=== PATIENT | male | born 1960 | race Caucasian/White ===

== ENCOUNTER 2018-02-11 10:27 | Emergency (ER) | payer BC, OTHER ==
[2018-02-11 10:33] VITALS: BP 154/94; RESP 20; TEMP 98.1
[2018-02-11] MEDS ORDERED: IPRATROPIUM-ALBUTEROL 3 ML NEB INHALATION STA (10:50)
--- NOTE | 2018-02-11 10:52 | ED ---
General Adult HPI - General Chief complaint: Shortness of Breath Stated complaint: PANCHO Time Seen by Provider: 02/11/18 10:29 Source: patient, RN notes reviewed Mode of arrival: ambulatory Limitations: no limitations - History of Present Illness Initial comments: Patient is a pleasant 57-year-old male presenting to the emergency Department with cough and difficulty breathing. Patient is a smoker. Symptoms have been present for quite a while however worse the past few days. Cough has had some clear sputum. Patient also has sinus congestion and clear drainage. Patient has been taking Claritin for that. Patient feels he may have had some fevers. Patient did have similar symptoms last year that resolved with antibiotics. No leg pain or leg swelling. - Related Data Previous Rx's Medication Instructions Recorded Albuterol Inhaler [Ventolin Hfa 2 puff INHALATION Q4HR PRN #1 02/11/18 Inhaler] inhaler Azithromycin [Zithromax Z-pack] 250 mg PO DIRECTED #6 tab 02/11/18 predniSONE 20 mg PO BID #10 tab 02/11/18 Allergies Allergy/AdvReac Type Severity Reaction Status Date / Time No Known Allergies Allergy Verified 02/11/18 10:33 Review of Systems ROS Statement: Those systems with pertinent positive or pertinent negative responses have been documented in the HPI. ROS Other: All systems not noted in ROS Statement are negative. Constitutional: Reports: fever, chills Eyes: Denies: eye pain ENT: Reports: congestion. Denies: ear pain Respiratory: Reports: cough, dyspnea Cardiovascular: Denies: chest pain Endocrine: Denies: fatigue Gastrointestinal: Denies: abdominal pain Genitourinary: Denies: dysuria Musculoskeletal: Denies: back pain Skin: Denies: rash Neurological: Denies: weakness Past Medical History Past Medical History: Coronary Artery Disease (CAD), Hypertension History of Any Multi-Drug Resistant Organisms: None Reported Past Surgical History: Orthopedic Surgery Past Psychological History: No Psychological Hx Reported Smoking Status: Current every day smoker Past Alcohol Use History: Daily Past Drug Use History: Marijuana General Exam Limitations: no limitations General appearance: alert, in no apparent distress Head exam: Present: atraumatic Eye exam: Present: normal appearance, PERRL ENT exam: Present: normal oropharynx Neck exam: Present: normal inspection Respiratory exam: Present: wheezes, decreased breath sounds Cardiovascular Exam: Present: regular rate, normal rhythm GI/Abdominal exam: Present: soft. Absent: tenderness Extremities exam: Present: normal inspection. Absent: pedal edema, calf tenderness Neurological exam: Present: alert Psychiatric exam: Present: normal affect, normal mood Skin exam: Present: normal color Course Vital Signs 02/11/18 02/11/18 02/11/18 10:28 10:55 11:03 Temperature 98.1 F Pulse Rate 106 H 104 H 104 H Respiratory 20 Rate Blood Pressure 154/94 O2 Sat by Pulse 97 Oximetry - Reevaluation(s) Reevaluation #1: 02/11/18 11:42 Patient counseled on smoking sensation greater than 3 minutes. Medical Decision Making - Medical Decision Making Patient reevaluated and improved following advise her treatment. Lungs are clear to auscultation. Patient updated on results and plan. Patient states he believes he was assigned Dr. Stone by his insurance however is not certain. - Radiology Data Radiology results: image reviewed (Chest x-ray shows no acute process) Disposition Clinical Impression: Acute bronchitis, Acute exacerbation of chronic obstructive airways disease Disposition: HOME SELF-CARE Condition: Stable Instructions: Acute Bronchitis (ED), COPD (Chronic Obstructive Pulmonary Disease) (ED), How to Stop Smoking (ED) Additional Instructions: Discontinue smoking. Please follow-up with primary care physician in the beginning of the week for follow-up. Return for difficulty breathing, fevers, worsening or changing symptoms or other concerns. Prescriptions: Albuterol Inhaler [Ventolin Hfa Inhaler] 2 puff INHALATION Q4HR PRN #1 inhaler PRN Reason: Dyspnea Azithromycin [Zithromax Z-pack] 250 mg PO DIRECTED #6 tab predniSONE 20 mg PO BID #10 tab Is patient prescribed a controlled substance at d/c from ED?: No Referrals: Galindo Duarte MD [STAFF PHYSICIAN] - 1-2 days Niyah Stone MD [STAFF PHYSICIAN] - 1-2 days Time of Disposition: 11:44
[2018-02-11 10:57] VITALS: PULSE 104
--- NOTE | 2018-02-11 11:26 | XR ---
EXAMINATION TYPE: XR chest 2V DATE OF EXAM: 02/11/2018 HISTORY: Cough. REFERENCE: NONE. FINDINGS: The lungs are clear. Pleural spaces are clear. The heart is not enlarged. IMPRESSION: NO ACUTE INTRATHORACIC ABNORMALITY.
== END 2018-02-11 11:58 | disposition home or self-care (01) ==
LOC: EC 10:27
DX: J44.1 Chronic obstructive pulmonary disease with (acute) exacerbation (principal); J44.0 Chronic obstructive pulmonary disease with (acute) lower respiratory infection; J20.9 Acute bronchitis, unspecified; F17.200 Nicotine dependence, unspecified, uncomplicated
CPT/HCPCS: 71046; 94640; 99285; 99406

== ENCOUNTER 2018-03-07 13:42 | Inpatient (IN) | payer BC ==
[2018-03-07] MEDS ORDERED: IPRATROPIUM-ALBUTEROL 3 ML NEB INHALATION STA (14:29)
[2018-03-07] MEDS ORDERED: methylPREDNISolone SOD SUCCI 125 MG/2 ML VIAL IV STA (14:29)
--- NOTE | 2018-03-07 14:33 | ED ---
SOB HPI - General Chief Complaint: Shortness of Breath Stated Complaint: PANCHO Time Seen by Provider: 03/07/18 14:02 Source: patient, RN notes reviewed Mode of arrival: ambulatory Limitations: no limitations - History of Present Illness Initial Comments: This is a 58-year-old male who presents with complaints of exertional dyspnea. He states he cannot walk more than 10 feet without getting winded. This is been progressing over last week or so. He was seen by his doctor last week and placed on antibiotics given a nebulizer for home he states is not helping. He denies any fevers chills sweats or chest pain. He is a smoker he states he try to quit and he almost is done smoking. He has no known diagnosis of COPD emphysema or asthma. No known heart disease no congestive heart failure. He denies any other problems at this time no other modifying factors MD Complaint: shortness of breath - Related Data Home Medications Medication Instructions Recorded Confirmed Cholecalciferol (Vitamin D3) 2,000 unit PO DAILY 03/07/18 03/07/18 [Vitamin D3] Ipratropium-Albuterol Nebulize 3 ml INHALATION RT-QID PRN 03/07/18 03/07/18 [Duoneb 0.5 mg-3 mg/3 ml Soln] Loratadine-Pseudoeph 10-240 mg 1 tab PO DAILY 03/07/18 03/07/18 [Claritin-D 24 Hr] amLODIPine [Norvasc] 5 mg PO DAILY 03/07/18 03/07/18 Allergies Allergy/AdvReac Type Severity Reaction Status Date / Time No Known Allergies Allergy Verified 03/07/18 14:19 Review of Systems ROS Statement: Those systems with pertinent positive or pertinent negative responses have been documented in the HPI. ROS Other: All systems not noted in ROS Statement are negative. Past Medical History Past Medical History: Coronary Artery Disease (CAD), COPD, Hypertension History of Any Multi-Drug Resistant Organisms: None Reported Past Surgical History: Orthopedic Surgery Past Psychological History: No Psychological Hx Reported Smoking Status: Current every day smoker Past Alcohol Use History: Daily Past Drug Use History: Marijuana General Exam - General Exam Comments Initial Comments: This is a well-developed well-nourished awake alert oriented 3 male Limitations: no limitations General appearance: alert, in no apparent distress, anxious Head exam: Present: atraumatic, normocephalic, normal inspection Eye exam: Present: normal appearance, PERRL, EOMI. Absent: scleral icterus, conjunctival injection, periorbital swelling ENT exam: Present: mucous membranes dry, other (Evidence of mild oral thrush) Neck exam: Present: normal inspection, full ROM, other (No stridor JVD or bruits ). Absent: tenderness, meningismus, lymphadenopathy Respiratory exam: Present: rhonchi (Right lower lobe rhonchi), decreased breath sounds Cardiovascular Exam: Present: regular rate, tachycardia GI/Abdominal exam: Present: soft, normal bowel sounds. Absent: distended, tenderness, guarding, rebound, rigid Extremities exam: Present: pedal edema Back exam: Present: normal inspection Neurological exam: Present: alert, oriented X3, CN II-XII intact Psychiatric exam: Present: normal affect, normal mood Skin exam: Present: warm, dry, intact, normal color. Absent: rash Course Vital Signs 03/07/18 03/07/18 03/07/18 13:47 14:53 15:02 Temperature 98.2 F Pulse Rate 121 H 120 H 120 H Respiratory 18 Rate Blood Pressure 169/95 O2 Sat by Pulse 97 Oximetry 03/07/18 16:03 Temperature Pulse Rate 114 H Respiratory 19 Rate Blood Pressure 156/97 O2 Sat by Pulse 98 Oximetry - Reevaluation(s) Reevaluation #1: 03/07/18 16:35 Patient does admit to using a lot of alcohol and smoking cigarettes. Medical Decision Making - Medical Decision Making Patient got minimal relief from his updraft treatment. CT showed no definite pulmonary embolism. Patient still short of breath still tachycardic. I did discuss case with Dr. Duarte patient be admitted with consultation by Dr. Tom lynn and medicine. Echocardiogram will be ordered. - Lab Data Result diagrams: 03/07/18 14:04 03/07/18 14:04 Lab Results 03/07/18 03/07/18 03/07/18 Range/Units 14:04 14:04 14:04 WBC 10.2 (3.8-10.6) k/uL RBC 3.74 L (4.30-5.90) m/uL Hgb 12.7 L (13.0-17.5) gm/dL Hct 38.7 L (39.0-53.0) % MCV 103.6 H (80.0-100.0) fL MCH 34.0 (25.0-35.0) pg MCHC 32.8 (31.0-37.0) g/dL RDW 13.9 (11.5-15.5) % Plt Count 251 (150-450) k/uL Neutrophils % 77 % Lymphocytes % 14 % Monocytes % 6 % Eosinophils % 2 % Basophils % 1 % Neutrophils # 7.9 H (1.3-7.7) k/uL Lymphocytes # 1.4 (1.0-4.8) k/uL Monocytes # 0.6 (0-1.0) k/uL Eosinophils # 0.2 (0-0.7) k/uL Basophils # 0.1 (0-0.2) k/uL Macrocytosis Slight PT 10.8 (9.0-12.0) sec INR 1.0 (<1.2) APTT 27.3 (22.0-30.0) sec D-Dimer 3.68 H (<0.60) mg/L FEU Sodium (137-145) mmol/L Potassium (3.5-5.1) mmol/L Chloride (98-107) mmol/L Carbon Dioxide (22-30) mmol/L Anion Gap mmol/L BUN (9-20) mg/dL Creatinine (0.66-1.25) mg/dL Est GFR (CKD-EPI)AfAm (>60 ml/min/1.73 sqM) Est GFR (CKD-EPI)NonAf (>60 ml/min/1.73 sqM) Glucose (74-99) mg/dL Calcium (8.4-10.2) mg/dL Magnesium (1.6-2.3) mg/dL Total Bilirubin (0.2-1.3) mg/dL AST (17-59) U/L ALT (21-72) U/L Alkaline Phosphatase (38-126) U/L Total Creatine Kinase 158 (55-170) U/L CK-MB (CK-2) 2.5 H (0.0-2.4) ng/mL CK-MB (CK-2) Rel Index 1.6 Troponin I <0.012 (0.000-0.034) ng/mL NT-Pro-B Natriuret Pep pg/mL Total Protein (6.3-8.2) g/dL Albumin (3.5-5.0) g/dL 03/07/18 03/07/18 03/07/18 Range/Units 14:04 14:04 14:04 WBC (3.8-10.6) k/uL RBC (4.30-5.90) m/uL Hgb (13.0-17.5) gm/dL Hct (39.0-53.0) % MCV (80.0-100.0) fL MCH (25.0-35.0) pg MCHC (31.0-37.0) g/dL RDW (11.5-15.5) % Plt Count (150-450) k/uL Neutrophils % % Lymphocytes % % Monocytes % % Eosinophils % % Basophils % % Neutrophils # (1.3-7.7) k/uL Lymphocytes # (1.0-4.8) k/uL Monocytes # (0-1.0) k/uL Eosinophils # (0-0.7) k/uL Basophils # (0-0.2) k/uL Macrocytosis PT (9.0-12.0) sec INR (<1.2) APTT (22.0-30.0) sec D-Dimer (<0.60) mg/L FEU Sodium 137 (137-145) mmol/L Potassium 4.1 (3.5-5.1) mmol/L Chloride 105 (98-107) mmol/L Carbon Dioxide 23 (22-30) mmol/L Anion Gap 9 mmol/L BUN 4 L (9-20) mg/dL Creatinine 0.47 L (0.66-1.25) mg/dL Est GFR (CKD-EPI)AfAm >90 (>60 ml/min/1.73 sqM) Est GFR (CKD-EPI)NonAf >90 (>60 ml/min/1.73 sqM) Glucose 106 H (74-99) mg/dL Calcium 9.1 (8.4-10.2) mg/dL Magnesium 1.9 (1.6-2.3) mg/dL Total Bilirubin 2.3 H (0.2-1.3) mg/dL AST 67 H (17-59) U/L ALT 57 (21-72) U/L Alkaline Phosphatase 173 H (38-126) U/L Total Creatine Kinase (55-170) U/L CK-MB (CK-2) (0.0-2.4) ng/mL CK-MB (CK-2) Rel Index Troponin I (0.000-0.034) ng/mL NT-Pro-B Natriuret Pep 54 pg/mL Total Protein 6.8 (6.3-8.2) g/dL Albumin 3.6 (3.5-5.0) g/dL - EKG Data -: EKG Interpreted by Me EKG shows normal: sinus rhythm (Sinus tachycardia rate 088927 to QRS duration 80 QT since QTC 344/474 no definite acute changes otherwise) - Radiology Data Radiology results: report reviewed (I did review the imaging and report no acute findings. There is evidence of a small area of ascites no PE ascending thoracic aorta is mildly prominent 4 cm thyroid noted), image reviewed Disposition Clinical Impression: Acute exacerbation of chronic obstructive airways disease, Tachycardia, Smoking , Exertional dyspnea Disposition: ADMITTED IP TO THIS HOSP Condition: Stable Referrals: Galindo Duarte MD [Primary Care Provider] - 1-2 days
[2018-03-07 14:46] LABS: Basophils # (A) 0.1 k/uL (0-0.2); Basophils % (A) 1 %; Eosinophils # (A) 0.2 k/uL (0-0.7); Eosinophils % (A) 2 %; HCT 38.7 % (39.0-53.0); HGB 12.7 gm/dL (13.0-17.5); Lymphocytes # (A) 1.4 k/uL (1.0-4.8); Lymphocytes % (A) 14 %; MCHC 32.8 g/dL (31.0-37.0); MCV 103.6 fL (80.0-100.0); Macrocytosis Slight; Mean Platelet Volume 6.8; Monocytes # (A) 0.6 k/uL (0-1.0); Monocytes % (A) 6 %; Neutrophils # (A) 7.9 k/uL (1.3-7.7); Neutrophils % (A) 77 %; Platelet Count 251 k/uL (150-450); RBC 3.74 m/uL (4.30-5.90); RDW 13.9 % (11.5-15.5); WBC 10.2 k/uL (3.8-10.6)
--- NOTE | 2018-03-07 14:51 | XR ---
EXAMINATION TYPE: XR chest 2V DATE OF EXAM: 03/07/2018 COMPARISON: Chest x-ray February 11, 2018 HISTORY: History of COPD presents with shortness of breath for 4 days. TECHNIQUE: Frontal and lateral views of the chest are obtained. FINDINGS: There is poor inspiration on current study. There is elevation and eventration of the ante rior aspect right hemidiaphragm redemonstrated. Mild reticular interstitial prominence bilaterally is seen. No suspicious focal airspace opacity, pleural effusion, or pneumothorax is noted bilaterally. The cardiac silhouette size is upper limits of normal currently. There is ectatic thoracic aorta cau sing mass effect on the trachea. The osseous structures are intact. IMPRESSION: Possible mild bilateral interstitial edema. No new suspicious focal infiltrate.
[2018-03-07 14:54] LABS: ALT 57 U/L (21-72); AST 67 U/L (17-59); Albumin 3.6 g/dL (3.5-5.0); Alkaline Phosphatase 173 U/L (38-126); Anion Gap 9 mmol/L; Blood Urea Nitrogen 4 mg/dL (9-20); Calcium 9.1 mg/dL (8.4-10.2); Carbon Dioxide 23 mmol/L (22-30); Chloride 105 mmol/L (98-107); Glucose 106 mg/dL (74-99); Potassium 4.1 mmol/L (3.5-5.1); Sodium 137 mmol/L (137-145); Total Bilirubin 2.3 mg/dL (0.2-1.3); Total Protein 6.8 g/dL (6.3-8.2)
[2018-03-07 15:01] LABS: Partial Thromboplastin Time 27.3 sec (22.0-30.0); Prothrombin Time 10.8 sec (9.0-12.0)
[2018-03-07 15:02] LABS: D-Dimer 3.68 mg/L FEU (<0.60)
[2018-03-07 15:16] LABS: Creatine Kinase 158 U/L (55-170)
[2018-03-07 15:28] LABS: Creatine Kinase MB 2.5 ng/mL (0.0-2.4); Troponin I <0.012 ng/mL (0.000-0.034)
--- NOTE | 2018-03-07 16:07 | CT ---
CT CHEST FOR PULMONARY EMBOLISM. EXAMINATION TYPE: CT angio chest DATE OF EXAM: 03/07/2018 INDICATION: Chest pain and shortness of breath. CT DLP: 426.9 mGycm, Automated exposure control for dose reduction was used. CONTRAST: Patient injected with 100 mL of Isovue 300. COMPARISON: None TECHNIQUE: CT of the chest is performed on a spiral scan at 2 mm thick sections. Study is performed with intravenous contrast timed for evaluation for pulmonary embolism. This will limit additional po rtions of the evaluation. 3-D MIP images reconstructed by the technologist are reviewed on the compu ter in the coronal and sagittal planes. FINDINGS: Thyroid appears prominent. This could be further evaluated with ultrasound. No persistent filling defects are evident to suggest an acute pulmonary embolism. No mediastinal or hilar adenopathy enlarged by CT criteria is evident. The ascending aorta diameter at the level of the main pulmonary artery is 4.0 cm. The main pulmonary artery diameter at the bifur cation is 3.3 cm. Mild coronary artery calcification may be present. Lung windows are clear. Small amount of ascites is adjacent to the liver. There is a ill-defined hypodensity within the right lobe liver periphery measuring approximately 3.8 cm in size. Series 401 image 134. IMPRESSIONS: 1. No acute pulmonary embolism. 2. Small amount of ascites adjacent to the liver. 3. Ascending thoracic aorta mildly prominent at 4.0 cm. 4. Prominent thyroid which could be further evaluated with ultrasound.
--- NOTE | 2018-03-07 18:18 | US ---
EXAMINATION TYPE: US venous doppler duplex Lower Extrem Bilat DATE OF EXAM: 03/07/2018 5:55 PM COMPARISON: NONE CLINICAL HISTORY: Pain; edema SIDE PERFORMED: Bilateral TECHNIQUE: The lower extremity deep venous system is examined utilizing real time linear array sonog kalani with graded compression, doppler sonography and color-flow sonography. VESSELS IMAGED: External Iliac Vein (EIV) Common Femoral Vein Deep Femoral Vein Greater Saphenous Vein * Femoral Vein Popliteal Vein Small Saphenous Vein * Proximal Calf Veins (* superficial vessels) FINDINGS: Grayscale, color doppler, spectral doppler imaging performed of the deep veins of the right and left lower extremities. There is normal flow, compressibility, vascular waveforms. IMPRESSION: NEGATIVE FOR DVT, BILATERAL LOWER EXTREMITIES.
[2018-03-07] MEDS: SODIUM CHLORIDE 0.9% 1,000 ML IV SCH (18:27)
[2018-03-07] MEDS: methylPREDNISolone SOD SUCCI 125 MG/2 ML VIAL IV SCH ×2 (21:01→23:05)
[2018-03-07] MEDS: IPRATROPIUM-ALBUTEROL 3 ML NEB INHALATION SCH ×2 (21:19→23:47)
[2018-03-07 21:24] LABS: Glucose,Whole Blood 148 mg/dL (75-99)
[2018-03-07] MEDS ORDERED: amLODIPine 5 MG TAB PO STA (21:49)
[2018-03-07] MEDS: NICOTINE 14MG/24HR PATCH TRANSDERM SCH (23:04)
[2018-03-07] MEDS: ZOLPIDEM 5 MG TAB PO SCH (23:05)
[2018-03-07] MEDS: HEPARIN SODIUM,PORCINE 5,000 UNIT/ML 1 ML VIAL SQ SCH (23:05)
--- NOTE | 2018-03-07 23:27 | CT ---
EXAMINATION TYPE: CT abdomen pelvis wo con DATE OF EXAM: 03/07/2018 COMPARISON: None HISTORY: abdominal pain and swellling CT DLP: 709.8 mGycm Automated exposure control for dose reduction was used. TECHNIQUE: Helical acquisition of images was performed from the lung bases through the pelvis. FINDINGS: Lung bases are clear. There is no pleural effusion. Heart size is normal. There is a 0.5 x 2.5 cm low-density mass in the subcapsular right lateral lobe of the liver. There is free fluid around the liver. There is mild ascites. Spleen has normal size. Stomach has normal size. Gallbladder is dilated and measures 5.5 cm in diameter. I see no evidence of a pancreatic mass. There is no adrenal mass. Kidneys show no hydronephrosis. There is moderate free fluid in the pelvis. Bladder distends smoothly. There is prosthetic calcification. There is no evidence of a bowel obstru ction. There is no mesenteric adenopathy. There is high attenuation in the renal collecting systems r elated to contrast exam earlier today. There is no hydronephrosis. There is subtle hypodensity in the anterior right lobe of the liver. Lumbar spine is intact. Bony pelvis appears intact. There is a few millimeter anterior subluxation of L3 in relation to L4. IMPRESSION: THERE IS HYPODENSE MASS IN THE LATERAL RIGHT LOBE OF THE LIVER I WOULD CONSIDER POSSIBILITY OF ABSCES S AND TUMOR. FOLLOW-UP IS RECOMMENDED. THERE IS MODERATE ASCITES FLUID. DILATED GALLBLADDER IS SUGGESTIVE OF CYSTIC DUCT OBSTRUCTION AND CHOLECYSTITIS.
[2018-03-08] MEDS: IPRATROPIUM-ALBUTEROL 3 ML NEB INHALATION SCH ×5 (03:48→20:23)
[2018-03-08 06:17] LABS: Glucose,Whole Blood 138 mg/dL (75-99)
[2018-03-08 06:22] LABS: HCT 38.4 % (39.0-53.0); HGB 12.9 gm/dL (13.0-17.5); MCHC 33.5 g/dL (31.0-37.0); MCV 104.6 fL (80.0-100.0); Macrocytosis Slight; Mean Platelet Volume 6.8; Platelet Count 218 k/uL (150-450); RBC 3.67 m/uL (4.30-5.90); RDW 13.4 % (11.5-15.5)
[2018-03-08 06:48] LABS: Anion Gap 6 mmol/L; Blood Urea Nitrogen 9 mg/dL (9-20); Calcium 9.1 mg/dL (8.4-10.2); Carbon Dioxide 26 mmol/L (22-30); Chloride 105 mmol/L (98-107); Glucose 148 mg/dL (74-99); Potassium 4.7 mmol/L (3.5-5.1); Sodium 137 mmol/L (137-145)
[2018-03-08] MEDS: INSULIN ASPART (NovoLOG) 100 UNIT/ML VIAL SQ SCH ×4 (06:57→20:25)
[2018-03-08] MEDS: methylPREDNISolone SOD SUCCI 125 MG/2 ML VIAL IV SCH ×4 (07:00→22:44)
[2018-03-08] MEDS: CHOLECALCIFEROL 1,000 UNIT TAB PO SCH (08:28)
[2018-03-08] MEDS: NICOTINE 14MG/24HR PATCH TRANSDERM SCH (08:28)
[2018-03-08] MEDS: amLODIPine 5 MG TAB PO SCH (08:28)
[2018-03-08] MEDS: HEPARIN SODIUM,PORCINE 5,000 UNIT/ML 1 ML VIAL SQ SCH ×2 (08:28→20:03)
[2018-03-08] MEDS ORDERED: NICOTINE 21MG/24HR PATCH TRANSDERM SCH (09:00)
[2018-03-08] MEDS ORDERED: LORATADINE-PSEUDOEPH 5-120 MG 1 EACH TAB.ER.12H PO PRN (09:00)
[2018-03-08] MEDS ORDERED: BUTALB/APAP/CAFF 50-325-40MG TAB PO PRN (11:05)
[2018-03-08 12:04] LABS: Glucose,Whole Blood 140 mg/dL (75-99)
--- NOTE | 2018-03-08 13:27 | ECHOF ---
Referral Reason:Dyspnea and tachycardia MEASUREMENTS -------- HEIGHT: 172.7 cm WEIGHT: 90.7 kg BP: 139/86 RVIDd: 3.3 cm (< 3.3) IVSd: 1.2 cm (0.6 - 1.1) LVIDd: 4.8 cm (3.9 - 5.3) LVPWd: 1.4 cm (0.6 - 1.1) IVSs: 1.7 cm LVIDs: 2.9 cm LVPWs: 1.4 cm LA Diam: 4.6 cm (2.7 - 3.8) LAESV Index (A-L): 38.56 ml/m Ao Diam: 3.4 cm (2.0 - 3.7) AV Cusp: 2.4 cm (1.5 - 2.6) LA Diam: 4.3 cm (2.7 - 3.8) MV EXCURSION: 21.085 mm (> 18.000) MV EF SLOPE: 158 mm/s (70 - 150) EPSS: 0.4 cm MV E Merritt: 1.21 m/s MV DecT: 126 ms MV A Merritt: 0.55 m/s MV E/A Ratio: 2.22 RAP: 5.00 mmHg RVSP: 31.53 mmHg FINDINGS -------- Sinus rhythm. This was a technically adequate study. The left ventricular size is normal. There is mild concentric left ventricular hypertrophy. Overa ll left ventricular systolic function is normal with, an EF between 55 - 60 %. The right ventricle is normal in size. LA is moderately dilated 34-39 ml/m2 The right atrial size is normal. The aortic valve is trileaflet, and appears structurally normal. No aortic stenosis or regurgitation. The mitral valve is normal. Mild mitral regurgitation is present. Mild tricuspid regurgitation present. Right ventricular systolic pressure is normal at < 35 mmHg. The right ventricular systolic pressure, as measured by Doppler, is 31.53mmHg. There is no pulmonic regurgitation present. The aortic root size is normal. There is no pericardial effusion. CONCLUSIONS -------- 1. Sinus rhythm. 2. The left ventricular size is normal. 3. There is mild concentric left ventricular hypertrophy. 4. Overall left ventricular systolic function is normal with, an EF between 55 - 60 %. 5. LA is moderately dilated 34-39 ml/m2 6. The aortic valve is trileaflet, and appears structurally normal. No aortic stenosis or regurgitati on. 7. Mild mitral regurgitation is present. 8. Mild tricuspid regurgitation present. 9. Right ventricular systolic pressure is normal at < 35 mmHg. 10. There is no pulmonic regurgitation present. 11. The aortic root size is normal. 12. There is no pericardial effusion. PLASTIC SURGERY COORDINATOR: Brunilda Doshi RDCS
[2018-03-08 16:59] LABS: Glucose,Whole Blood 139 mg/dL (75-99)
[2018-03-08] MEDS: SODIUM CHLORIDE 0.9% 1,000 ML IV SCH (17:12)
[2018-03-08] MEDS ORDERED: LORazepam 2 MG/ML INJ IV PRN ×2 (17:29)
[2018-03-08 17:32] LABS: Hemoglobin A1C 5.4 % (4.0-6.0)
--- NOTE | 2018-03-08 18:02 | P.PN ---
Progress Note - Text Progress Note Date: 03/08/18 The patient was seen at the bedside. He has minimal complaints of pain. On exam his abdomen is soft and is quite distended. It. Patient is scheduled for CT-guided liver biopsy tomorrow.
[2018-03-08] MEDS: ZOLPIDEM 5 MG TAB PO SCH (20:03)
[2018-03-08] MEDS: LORazepam 2 MG/ML INJ IV PRN (20:04)
[2018-03-08 20:34] LABS: Glucose,Whole Blood 207 mg/dL (75-99)
[2018-03-08 21:10] LABS: Glucose,Whole Blood 175 mg/dL (75-99)
--- NOTE | 2018-03-08 23:53 | HP ---
HISTORY AND PHYSICAL CHIEF COMPLAINT: 58-year-old white male continues to have exertional dyspnea. He cannot go more than 10 feet without at which time he was admitted to the hospital with acute respiratory distress through the ER, started on IV steroids, updraft treatments. Past medical history history of COPD and emphysema. Has abdominal distention, which showed gallbladder, liver mass possible needle biopsy will be done in the morning and possible cholecystectomy. Otherwise, treat him for COPD exacerbation. HOME MEDICINES: DuoNeb, vitamin D, Claritin-D and Norvasc 5 mg daily. ALLERGIES: No known drug allergies. PAST MEDICAL HISTORY: Coronary artery disease, COPD, hypertension, orthopedic surgery. SOCIAL HISTORY: Current everyday smoker, daily alcohol and marijuana. REVIEW OF SYSTEMS: Fourteen point review of systems negative except for mentioned in HPI. PHYSICAL EXAMINATION: VITAL SIGNS: Temp 98.5, pulse is 120, respiratory 16-18, blood pressure 160s over 80s, O2 97% on room air. CARDIOVASCULAR: S1-S2. LUNGS: Show expiratory wheezes x4. Scattered rhonchi x4. ABDOMEN: Is distended, tender to palpation right upper quadrant. HEMATOLOGY: Negative Homans. PSYCH: Fair mood and affect. VASCULAR: Normal dorsalis pedis, posterior tibial, radial pulse. ASSESSMENT: 1. Chronic obstructive pulmonary disease exacerbation. 2. Liver mass. 3. Acute cholecystitis, cholelithiasis. IV steroids, updraft treatments, IV antibiotics. Pulmonary consult. Surgical consult. Please see further orders. MMODL / IJN: [id number] /
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
[2018-03-09 00:17] VITALS: RESP 18
[2018-03-09] MEDS: IPRATROPIUM-ALBUTEROL 3 ML NEB INHALATION SCH ×5 (00:33→15:51)
[2018-03-09] MEDS: methylPREDNISolone SOD SUCCI 125 MG/2 ML VIAL IV SCH ×3 (05:23→17:50)
[2018-03-09 05:45] LABS: Glucose,Whole Blood 158 mg/dL (75-99)
[2018-03-09] MEDS: INSULIN ASPART (NovoLOG) 100 UNIT/ML VIAL SQ SCH ×3 (05:50→17:47)
[2018-03-09] MEDS: HEPARIN SODIUM,PORCINE 5,000 UNIT/ML 1 ML VIAL SQ SCH (07:02)
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
--- NOTE | 2018-03-09 08:08 | US ---
EXAMINATION TYPE: US liver DATE OF EXAM: 03/09/2018 COMPARISON: CT abdomen and pelvis from 2 days ago CLINICAL HISTORY: assess for masses. EXAM MEASUREMENTS: Liver Length: 18.0 cm Gallbladder Wall: 0.3 cm CBD: 1.0 cm Right Kidney: 11.3 x 5.3 x 5.6 cm Pancreas: limited views Liver: heterogeneous and difficult to define lesion seen on CT Gallbladder: no obvious stones seen Evidence for sonographic Albright's sign: no CBD: dilated with no obvious obstruction seen Right Kidney: wnl Visualized liver is heterogeneously hyperechoic taking evaluation for focal masses suboptimal. No int rahepatic ductal dilatation is seen. Some mild surrounding fluid remains present including near gallb ladder fossa. Gallbladder has distended margins without shadowing mobile gallstones. IMPRESSION: Heterogeneous hyperechoic appearance of liver favors underlying hepatocellular disease or cirrhosis based on CT correlation, there is one dominant right-sided peripheral mass on CT not clear ly seen on ultrasound, cannot exclude 2-3 smaller subcentimeter lesions on CT. All findings can be be tter evaluated and characterized with liver protocol contrast-enhanced MRI if desired. Strong conside ration should be considered if patient has elevated alpha protein.
[2018-03-09] MEDS: LORazepam 2 MG/ML INJ IV PRN (08:54)
[2018-03-09] MEDS: amLODIPine 5 MG TAB PO SCH (08:54)
[2018-03-09] MEDS: NICOTINE 14MG/24HR PATCH TRANSDERM SCH (08:54)
[2018-03-09 11:33] LABS: Glucose,Whole Blood 141 mg/dL (75-99)
[2018-03-09] MEDS ORDERED: DOXYCYCLINE 100 MG CAP PO SCH (14:09)
--- NOTE | 2018-03-09 14:11 | P.PN ---
Subjective Progress Note Date: 03/09/18 Principal diagnosis: Acute COPD exacerbation, acute tracheobronchitis, extensive history of smoking and nicotine use, alcoholism, hypertension hypertensive cardiovascular disease, coronary artery disease 03/09/2018, patient seen eval examined during the rounds clinically patient has been doing well awake and alert breathing comfortably cuff congestion shortness breath is improved but is still get short of breath on activity and exertion, ultrasound of the liver reviewed 58-year-old male with history of shortness of breath which has been progressive for over a week symptoms are predominantly on exertion, patient has been evaluated by primary service was treated with antibiotics breathing treatments without any significant relief due to persistent symptoms came into the hospital for further evaluation he smokes extensively still have been extensively smoking but however wants to quit at this point time, patient also need to be formally evaluated for COPD as his symptoms are very much consistent with that Objective - Vital Signs Vital signs: Vital Signs Temp 98.0 F 03/09/18 11:52 Pulse 118 H 03/09/18 11:52 Resp 18 03/09/18 11:52 BP 165/94 03/09/18 11:52 Pulse Ox 95 03/09/18 11:52 Intake & Output 03/08/18 03/09/18 03/09/18 18:59 06:59 18:59 Intake Total 1447 10 Output Total 600 Balance 1447 -590 Weight 90.4 kg 91.4 kg Intake: Intake, IV Titration 10 10 Amount Sodium Chloride 0.9% 1, 10 10 000 ml @ 20 mls/hr IV . Q24H [facility] Rx#:[id number] Oral 1437 0 Output: Urine 600 Other: # Voids 1 - Exam - Constitutional General appearance: cooperative, disheveled, mild distress - EENT Eyes: PERRLA Ears: bilateral: normal - Neck Neck: normal ROM Carotids: bilateral: upstroke normal Thyroid: bilateral: normal size - Respiratory Respiratory: bilateral: rhonchi, wheezing - Cardiovascular Heart sounds: normal: S1, S2 - Gastrointestinal General gastrointestinal: normal bowel sounds - Neurologic Neurologic: CNII-XII intact - Musculoskeletal Musculoskeletal: gait normal, generalized weakness, strength equal bilaterally - Psychiatric Psychiatric: A&O x's 3, appropriate affect, intact judgment & insight - Labs CBC & Chem 7: 03/08/18 05:56 03/08/18 05:56 Labs: Abnormal Lab Results - Last 24 Hours (Table) 03/08/18 03/08/18 03/08/18 Range/Units 16:57 20:23 21:08 POC Glucose (mg/dL) 139 H 207 H 175 H (75-99) mg/dL 03/09/18 03/09/18 Range/Units 05:44 11:31 POC Glucose (mg/dL) 158 H 141 H (75-99) mg/dL Assessment and Plan Assessment: Acute COPD exacerbation Acute bronchitis Extensive history of smoking and nicotine use and alcohol consumption Hypertension and hypertensive cardiovascular disease Coronary artery disease Plan: Bronchodilators IV steroids Simple antibiotics like oral doxycycline Antihypertensive agents Further recommendations pending plan of care as per clinical response of the patient Time with Patient: Greater than 30
[2018-03-09] MEDS ORDERED: DIAZEPAM 5 MG TAB PO STA (15:34)
[2018-03-09] MEDS: CHOLECALCIFEROL 1,000 UNIT TAB PO SCH (16:00)
[2018-03-09 16:44] VITALS: BP 168/95; PULSE 116; TEMP 97.3
[2018-03-09 16:52] LABS: Glucose,Whole Blood 200 mg/dL (75-99)
[2018-03-09] MEDS: SODIUM CHLORIDE 0.9% 1,000 ML IV SCH (17:15)
[2018-03-09] MEDS ORDERED: DOXYCYCLINE 50 MG CAP PO SCH (21:00)
--- NOTE | 2018-03-22 22:37 | DS ---
DISCHARGE SUMMARY DATE OF ADMISSION: 03/09/2018. DATE OF DISCHARGE: 03/09/2018. MEDICATIONS: 1. Excedrin D 24 hour 1 daily. 2. Vitamin D3, 2000 units daily. 3. Norvasc 5 mg daily. 4. DuoNeb updraft q.i.d. CONDITION: Stable. PROGNOSIS: Guarded. DISCHARGE INSTRUCTIONS: Ambulate as tolerated. HOSPITAL COURSE OF EVENTS: This is a white male who was admitted on March 07 with chest pain. He had a CTA of the chest which showed no acute pulmonary embolism. He had a small amount of ascites next to the liver. Ascending thoracic aorta mildly enlarged at 4. Prominent thyroid. Further treatment was abdominal pelvic CT, showed a 2.5 cm mass in the right lower lobe of the liver. Gallbladder was dilated. No pancreatic mass. Bladder distended. No hydronephrosis. Lumbar spine intact. Assessment was a liver mass, possibly abscess or tumor which will have to be worked up as an outpatient as well his gallbladder which will have to be taken out as an outpatient. He was treated for COPD exacerbation and tracheobronchitis which improved over the next 2 to 3 days, at which time he was discharged home. FOLLOWUP: Follow up in the office for further treatment. MMODL / IJN: [id number] /
== END 2018-03-09 18:54 | disposition home or self-care (01) | DRG 191 ==
LOC: EC 13:42 → 3SCARD 16:37 → OBSVTOIN 03-09 18:24
PROVIDERS: ADMIT Family Medicine; ATTEND Family Medicine
DX: J44.0 Chronic obstructive pulmonary disease with (acute) lower respiratory infection (principal); K80.00 Calculus of gallbladder with acute cholecystitis without obstruction; J44.1 Chronic obstructive pulmonary disease with (acute) exacerbation; F17.200 Nicotine dependence, unspecified, uncomplicated; I11.9 Hypertensive heart disease without heart failure; J20.9 Acute bronchitis, unspecified; I25.10 Atherosclerotic heart disease of native coronary artery without angina pectoris; Z79.899 Other long term (current) drug therapy
CPT/HCPCS: 36415; 71046; 71275; 74176; 76705; 80048; 80053; 82550; 82553; 83036; 83735; 83880; 84484; 85025; 85027; 85379; 85610; 85730; 93005; 93306; 93970; 94640; 94760; 96374; 99285

== ENCOUNTER → 2018-03-13 | Outpatient (CLI) | payer BC | END | disposition home or self-care (01) | LOC: RADUSWWP 06:59 | PROVIDERS: ATTEND Family Medicine | DX: Z53.9 Procedure and treatment not carried out, unspecified reason (principal) ==

== ENCOUNTER → 2018-04-10 | Outpatient (CLI) | payer BC | END | disposition home or self-care (01) | LOC: RADMRIMAIN 06:01 | PROVIDERS: ATTEND Surgery | DX: Z53.9 Procedure and treatment not carried out, unspecified reason (principal) ==

== ENCOUNTER → 2018-05-24 | Outpatient (CLI) | payer BC ==
[2018-05-24 17:46] LABS: Albumin 3.7 g/dL (3.80-4.90); Albumin/Globulin Ratio 1.19 (1.60-3.17); Anion Gap 8.9 mmol/L (4.00-12.00); Bilirubin,Unconjugated 1.1 mg/dL; Carbon Dioxide 27.1 mmol/L (21.6-31.8); Globulin 3.1 g/dL (1.6-3.3); Total Bilirubin 2.1 mg/dL (0.3-1.2); Total Protein 6.8 g/dL (6.2-8.2)
== END ==
LOC: LABWHC1 11:53
PROVIDERS: ATTEND Family Medicine
DX: I10 Essential (primary) hypertension (principal); Z79.899 Other long term (current) drug therapy
CPT/HCPCS: 36415; 80051; 80076; 82105; 82565; 83880; 84443; 84520

== ENCOUNTER → 2018-05-26 | Outpatient (CLI) | payer BC ==
--- NOTE | 2018-05-26 15:22 | US ---
EXAMINATION TYPE: US liver DATE OF EXAM: 05/26/2018 COMPARISON: NONE CLINICAL HISTORY: Ascities R18.8. Bloating and nausea for 4 months EXAM MEASUREMENTS: Liver Length: cm Gallbladder Wall: cm CBD: cm Right Kidney: cm Technical limitations due to patient's body habitus and overlying bowel content Pancreas: Obscured by bowel gas Liver: enlarged, heterogeneous Gallbladder: no evidence of stones Evidence for sonographic Albright's sign: no CBD: dilated Right Kidney: no evidence of hydronephrosis Moderate amount of ascites noted IMPRESSION: 1. No acute abdominal structural abnormality. 2. Ascites.
== END | disposition home or self-care (01) ==
LOC: RADUSWWP 07:28
PROVIDERS: ATTEND Family Medicine
DX: R18.8 Other ascites (principal)
CPT/HCPCS: 76705